=== PATIENT | male | born 1985 | race Caucasian/White ===

== ENCOUNTER 2018-06-04 15:35 | Emergency (ER) | payer OTHER ==
[2018-06-04] MEDS ORDERED: Lidocaine 1% with EPINEPHrine 1:100,000 20 ML MDV INJECT ONE (15:49)
[2018-06-04] MEDS ORDERED: Bacitracin Oint 1 GM U/D Packet TOP ONE (15:50)
[2018-06-04] MEDS ORDERED: Diphtheria,Pertussis(Acell),Tetanus Vaccine 0.5 ML Syringe IM ONE (15:50)
--- NOTE | 2018-06-04 15:50 | EDM.PDOC ---
ED HPI GENERAL MEDICAL PROBLEM - General Chief Complaint: Laceration Stated Complaint: PT HAS A CUT ON HIS RT ARM Time Seen by Provider: 06/04/18 15:36 - History of Present Illness INITIAL COMMENTS - FREE TEXT/NARRATIVE: HISTORY AND PHYSICAL: History of present illness: The patient is a healthy 33-year-old male who is unsure of his last tetanus shot and presents with complaints of cutting his right forearm while at work as a [employer]. The patient states he was in his usual state of good health prior to these events and was concerned that he might need sutures. He has normal neurovascular changes in his distal hand and no other injuries. The injury is located on his right forearm and there is no bony tenderness. Patient put a compression dressing on this prior to coming here. Review of systems: As per history of present illness and below otherwise all systems reviewed and negative. Past medical history: As per history of present illness and as reviewed below otherwise noncontributory. Surgical history: As per history of present illness and as reviewed below otherwise noncontributory. Social history: No reported history of drug or alcohol abuse. Family history: As per history of present illness and as reviewed below otherwise noncontributory. Physical exam: General: Well-developed well-nourished man who is nontoxic and vital signs are noted by me HEENT: Atraumatic, normocephalic, negative for conjunctival pallor or scleral icterus, mucous membranes moist, throat clear, neck supple, nontender, trachea midline. Lungs: Clear to auscultation, breath sounds equal bilaterally, chest nontender. Heart: S1S2, regular rate and rhythm no overt murmurs Abdomen: Soft, nondistended, nontender. NABS Pelvis: Deferred Genitourinary: Deferred. Rectal: Deferred. Extremities: Atraumatic, full range of motion of all extremities with the exclusion of the right volar forearm where there is a 6 cm linear laceration to the subcutaneous tissue without any gross bleeding soft tissue swelling or tenderness. The compartment is soft and the bony area is nontender. Neurovascular is intact distally. There is no distal or proximal injuries. Neurovascular unremarkable. Neuro: Awake, alert, oriented. Cranial nerves II through XII unremarkable. Cerebellum unremarkable. Motor and sensory unremarkable throughout. Exam nonfocal. Diagnostics: Therapeutics: Tdap, wound care with cleansing and bacitracin and dressing post laceration repair Procedure note: After the wound was examined and cleansed by nursing 1% lidocaine with epinephrine was infused a local fashion. Wound was prepped and draped in sterile fashion and explored and no foreign bodies were appreciated. The skin edges were reapproximated in simple interrupted suture fashion for total number of # 8 sutures of 4-0 nylon. The wound was simple in complexity and the patient tolerated the procedure well. Bacitracin and a dressing were applied by nursing Impression: Right forearm laceration Definitive disposition and diagnosis as appropriate pending reevaluation and review of above. right forearm Pain Score (Numeric/FACES): 1 - Related Data Allergies Allergy/AdvReac Type Severity Reaction Status Date / Time No Known Allergies Allergy Verified 06/04/18 15:50 Home Meds: Home Meds . [No Known Home Meds] 06/04/18 [History] ED ROS GENERAL - Review of Systems Review Of Systems: ROS reveals no pertinent complaints other than HPI. ED EXAM, SKIN/RASH Exam: See Below (See dictation) Course - Vital Signs Last Recorded V/S: Last Vital Signs Temp 36.4 C 06/04/18 15:51 Pulse 93 06/04/18 15:51 Resp 18 06/04/18 15:51 BP 130/89 06/04/18 15:51 Pulse Ox 98 06/04/18 15:51 - Orders/Labs/Meds Orders: Active Orders 24 hr Category Date Time Status Vaccines to be Administered [RC] PER UNIT ROUTINE Care 06/04/18 15:50 Active Meds: Medications Discontinued Medications Generic Name Dose Route Start Last Admin Trade Name Chayito PRN Reason Stop Dose Admin Bacitracin 1 dose 06/04/18 15:50 06/04/18 15:57 Bacitracin Oint 1 Gm TOP 06/04/18 15:51 1 dose ONETIME ONE Administration Diphtheria/Tetanus/Acell Pertussis 0.5 ml 06/04/18 15:50 06/04/18 15:57 Adacel IM 06/04/18 15:51 0.5 ml .ONCE ONE Administration Lidocaine/Epinephrine 20 ml 06/04/18 15:49 06/04/18 15:54 Xylocaine 1% With Epinephrine 1:100,000 INJECT 06/04/18 15:50 20 ml ONETIME ONE Administration Departure - Departure Time of Disposition: 16:24 Disposition: Home, Self-Care 01 Condition: Good Clinical Impression: Laceration of forearm, right Qualifiers: Encounter type: initial encounter Qualified Code(s): S51.811A - Laceration without foreign body of right forearm, initial encounter - Discharge Information Referrals: PCP,None [Primary Care Provider] - Forms: ED Department Discharge Additional Instructions: The following information is given to patients seen in the emergency department who are being discharged to home. This information is to outline your options for follow-up care. We provide all patients seen in our emergency department with a follow-up referral. The need for follow-up, as well as the timing and circumstances, are variable depending upon the specifics of your emergency department visit. If you don't have a primary care physician on staff, we will provide you with a referral. We always advise you to contact your personal physician following an emergency department visit to inform them of the circumstance of the visit and for follow-up with them and/or the need for any referrals to a consulting specialist. The emergency department will also refer you to a specialist when appropriate. This referral assures that you have the opportunity for followup care with a specialist. All of these measure are taken in an effort to provide you with optimal care, which includes your followup. Under all circumstances we always encourage you to contact your private physician who remains a resource for coordinating your care. When calling for followup care, please make the office aware that this follow-up is from your recent emergency room visit. If for any reason you are refused follow-up, please contact the [facility] emergency department at and ask to speak to the emergency department charge nurse. [facility] Primary care- [place] [address] Keep the area clean and dry for the next 24 hours then remove the dressing placed in the ED and cleanse with mild soap and water pat dry and apply bacitracin or Neosporin. Please cleanse the wounds one to 2 times a day with mild soap and water and apply ointment. Do not use Band-Aids and cover only with gauze dressing. Sutures should be removed in 7-10 days. Sutures can be removed here in the emergency department with your provider in the clinic. Return to the ER sooner as needed and as discussed - My Orders Last 24 Hours: My Active Orders 06/04/18 15:50 Vaccines to be Administered [RC] PER UNIT ROUTINE - Assessment/Plan Last 24 Hours: My Active Orders 06/04/18 15:50 Vaccines to be Administered [RC] PER UNIT ROUTINE
== END 2018-06-04 16:32 | disposition home or self-care (01) ==
LOC: MW.ED 15:35
DX: S51.811A Laceration without foreign body of right forearm, initial encounter (principal); Y93.89 Activity, other specified; Y99.0 Civilian activity done for income or pay; I10 Essential (primary) hypertension; Z23 Encounter for immunization; W45.8XXA Other foreign body or object entering through skin, initial encounter
CPT/HCPCS: 90471; 90715; 99282-25

== ENCOUNTER 2018-06-12 19:48 | Emergency (ER) | payer OTHER | END 2018-06-12 20:16 | disposition home or self-care (01) | LOC: MW.ED 19:48 | DX: Z53.21 Procedure and treatment not carried out due to patient leaving prior to being seen by health care provider (principal) | CPT/HCPCS: 99281 ==